=== PATIENT | female | born 1985 | race Caucasian/White ===

== ENCOUNTER 2023-08-18 20:21 | Outpatient (REF) | payer BC, SELFPAY ==
[2023-08-24 10:09] LABS: Age Gdln ACOG Testing Note (.); HPV Aptima Negative (Negative); IGP, Aptima HPV, rfx 16/18,45 Note (.)
== END 2023-08-18 20:22 | disposition home or self-care (01) ==
LOC: LAB 20:21
PROVIDERS: Visit Provider Physician Assistant
DX: Z01.419 Encounter for gynecological examination (general) (routine) without abnormal findings (principal)
CPT/HCPCS: 87624; G0145

== ENCOUNTER 2024-08-21 12:49 | Outpatient (REF) | payer BC, SELFPAY ==
[2024-08-23 14:08] LABS: Age Gdln ACOG Testing Note (.); HPV Aptima Negative (Negative); IGP, Aptima HPV, rfx 16/18,45 Note (.)
== END 2024-08-21 12:50 | disposition home or self-care (01) ==
LOC: LAB 12:49
PROVIDERS: Visit Provider Obstetrics & Gynecology
DX: Z01.419 Encounter for gynecological examination (general) (routine) without abnormal findings (principal)
CPT/HCPCS: 87624; 88175